=== PATIENT | female | born 1995 | race Caucasian/White ===

== ENCOUNTER 2017-07-31 03:54 | Inpatient (IN) | payer OTHER ==
[~2017-07-31] VITALS: Ht 177.8 cm; Wt 58.8 kg
[2017-07-31] MEDS ORDERED: HYDROmorphone 1 MG/ML, 1ML ONE ×3 (04:58→07:01)
[2017-07-31] MEDS ORDERED: CEFAZOLIN PMX 1GM/50ML 50 ML ONE (04:58)
[2017-07-31] MEDS ORDERED: ONDANSETRON 2MG/ML, 2ML ONE ×2 (04:58→13:04)
[2017-07-31] MEDS ORDERED: CEFAZOLIN PMX 1GM/50ML 50 ML IVPB ONE (05:00)
[2017-07-31] MEDS ORDERED: ONDANSETRON 2MG/ML, 2ML IVPush ONE (05:00)
[2017-07-31] MEDS ORDERED: SODIUM CHLORIDE FLUSH 10ML SYR IVF ONE (05:00)
[2017-07-31] MEDS ORDERED: SODIUM CHLORIDE 0.9% 1,000ML IVBOLUS ONE (05:00)
[2017-07-31] MEDS: HYDROmorphone 1 MG/ML, 1ML IVPush PRN ×2 (05:05→05:43)
[2017-07-31 06:08] LABS: HEMATOCRIT 42.8 % (34.6-47.8); HEMOGLOBIN 14.3 g/dL (11.7-16.4); WHITE BLOOD COUNT 8.5 x10^3/uL (4.5-13.2)
[2017-07-31 06:17] LABS: BLOOD UREA NITROGEN 7 mg/dL (7-18)
[2017-07-31] MEDS ORDERED: HYDROmorphone 1 MG/ML, 1ML IVPush PRN (07:00)
[2017-07-31 07:51] VITALS: BP 122/71
[2017-07-31] MEDS ORDERED: ONDANSETRON 2MG/ML, 2ML IVPush PRN ×3 (08:30→16:00)
[2017-07-31] MEDS ORDERED: MORPHINE SULFATE 4 MG/ML, 1ML IVPush PRN ×2 (08:30→16:00)
[2017-07-31] MEDS ORDERED: SODIUM CHLORIDE 0.9% 1,000 ML IV ONE (09:00)
[2017-07-31] MEDS ORDERED: morphine SULFATE 10 MG/ML, 1ML IVPush PRN (12:00)
[2017-07-31] MEDS ORDERED: D5%-0.45% NACL 1,000 ML IV SCH (12:00)
[2017-07-31] MEDS ORDERED: MIDAZOLAM 1 MG/ML, 2ML ONE (12:25)
[2017-07-31] MEDS ORDERED: FENTANYL PF 100 MCG/2ML ONE (12:25)
[2017-07-31] MEDS ORDERED: ROPIvacaine/PF 0.5%, 30 ML ONE (12:27)
[2017-07-31] MEDS ORDERED: BUPIVACAINE/PF 0.5% ONE (12:42)
[2017-07-31] MEDS ORDERED: EPINEPHRINE 1 MG/ML, 1ML ONE (12:43)
[2017-07-31] MEDS ORDERED: SCOPOLAMINE PATCH, 1.5MG PATCH.TD72 TD ONE (12:46)
[2017-07-31] MEDS ORDERED: PROPOFOL 10 MG/ML, 20ML ONE (13:04)
[2017-07-31] MEDS ORDERED: DEXAMETHASONE 4 MG/ML, 1ML ONE (13:04)
[2017-07-31] MEDS ORDERED: KETOROLAC 30 MG/1 ML ONE (13:04)
[2017-07-31] MEDS ORDERED: CEFAZOLIN 1,000 MG ONE (13:04)
[2017-07-31] MEDS ORDERED: ALBUTEROL SULFATE 2.5 MG/3 ML NPPB PRN (13:30)
[2017-07-31] MEDS ORDERED: MEPERIDINE/PF 25MG/0.5ML IVPush PRN (13:30)
[2017-07-31] MEDS ORDERED: OXYcodone 5 MG/5 ML ORAL.SOL UDC PO PRN ×2 (13:30→18:30)
[2017-07-31] MEDS ORDERED: FENTANYL PF 100 MCG/2ML IV PRN (13:30)
[2017-07-31] MEDS ORDERED: ACETAMINOPHEN 325 MG TABLET PO PRN (13:30)
[2017-07-31] MEDS ORDERED: PROMETHAZINE 25 MG/ML, 1ML IV PRN (13:30)
[2017-07-31] MEDS ORDERED: MIDAZOLAM 1 MG/ML, 2ML IV PRN (13:30)
[2017-07-31] MEDS ORDERED: HYDROmorphone 1 MG/ML, 1ML IV PRN (13:30)
[2017-07-31] MEDS ORDERED: ACETAMINOPHEN 650 MG/20.3 ML UDC ONE (14:24)
[2017-07-31] MEDS ORDERED: OXYcodone 5 MG/5 ML ORAL.SOL UDC ONE (14:24)
[2017-07-31] MEDS ORDERED: MEPERIDINE/PF 25MG/0.5ML ONE (14:47)
[2017-07-31] MEDS ORDERED: OXYC5TAB3 PO (15:53)
== END 2017-07-31 17:36 | disposition home or self-care (01) | DRG 512 ==
LOC: ED 05:52 → EDIP 08:18 → 4NOR 09:00
PROVIDERS: ADMIT Orthopaedic Surgery; ATTEND Orthopaedic Surgery
PROC: 0PSH04Z Reposition Right Radius with Internal Fixation Device, Open Approach (ICD-10-PCS; principal; 2017-07-31 13:00)
DX: S52.501A Unspecified fracture of the lower end of right radius, initial encounter for closed fracture (principal); S52.601A Unspecified fracture of lower end of right ulna, initial encounter for closed fracture; Z72.89 Other problems related to lifestyle; W03.XXXA Other fall on same level due to collision with another person, initial encounter; Y93.89 Activity, other specified; Y92.89 Other specified places as the place of occurrence of the external cause; Y99.8 Other external cause status
CPT/HCPCS: 36415; 76000; 80048; 80307; 82040; 84703; 85025; 96361; 96365; 96375; 96376; J0171; J0690; J1100; J1170; J1885; J2175; J2250; J2405; J2704; J2795; J3010; J3490; J7030